=== PATIENT | male | born 2000 | race African-American/Black ===

== ENCOUNTER 2025-11-18 09:09 | Emergency (ER) | payer OTHER, SELFPAY ==
[2025-11-18 09:18] VITALS: BP 155/95; PULSE 130; RESP 18; TEMP 36.8; O2SAT 100
--- NOTE | 2025-11-18 10:04 | ED.NAVMDI ---
HPI - Nausea/Vomiting/Diarrhea General Chief complaint: Nausea/Vomiting/Diarrhea Stated complaint: nausea/fever Time Seen by Provider: 11/18/25 09:50 Source: patient and RN notes reviewed Mode of arrival: ambulatory Limitations: no limitations History of Present Illness HPI Narrative: 25-year-old male patient Presents Express Care complaining of nausea, vomiting, diarrhea for since this morning. Patient says started approximately 7 hours ago. Patient reports having abdominal cramping. Patient denies any abdominal pain, fevers, body aches, chills. Patient last vomited approximately 3 hours ago. Patient has been able to keep fluids down since vomiting. Patient reports brown watery diarrhea. Patient also reports red streaks of blood after wiping it reports red streaks of blood from vomiting. Patient denies any mucus in stools. Patient denies any black tarry stools, vomiting and gross amount of blood it or having gross amount of blood in the stool. Patient has a history of stomach ulcers, a just ran out of his medication for it he is not sure what he is supposed to be on but he has a follow-up with his doctor next week. Patient has not tried any [id number] for relief. Patient denies recent travel outside the country. Related Data Allergies Allergy/AdvReac Type Severity Reaction Status Date / Time No Known Allergies Allergy Verified 11/18/25 09:24 Review of Systems Review of Systems: CONSTITUTIONAL: Denies fever, chills, body aches, or sweats. EYES: Denies visual changes, redness, or discharge. ENT: Denies rhinorrhea, congestion, sore throat, or otalgia. CARDIOVASCULAR: Denies chest pain, palpitations, or edema. RESPIRATORY: Denies cough or dyspnea. GASTROINTESTINAL: Denies abdominal pain, bloody stools, black tarry stools, hematochezia. Positive for nausea, vomiting, or diarrhea. GENITOURINARY: Denies dysuria or hematuria. SKIN: Denies rash or itching. MUSCULOSKELETAL: Denies back pain, joint pain, or myalgia. NEUROLOGIC: Denies headache, numbness, or weakness. PSYCHIATRIC: Denies anxiety or depression. All other systems reviewed are negative, except as documented in HPI. Exam Narrative: GENERAL: This is a well-nourished, well-developed adult, in no apparent distress. They are non ill-appearing, nontoxic appearing. HEAD: normocephalic, atraumatic. EYES: Sclera clear/white. Vision is grossly intact. Conjunctiva normal bilaterally. Extraocular movements intact. EARS: External ears normal, Hearing grossly intact. NOSE: External nose normal THROAT: Mucous membranes moist NECK: Normal range of motion CARDIOVASCULAR: Tachycardic rate and rhythm. Normal S1-S2. No clicks, gallops, rubs, or murmurs. RESPIRATORY: Respiratory rate normal, respiratory effort nonlabored, no respiratory distress. Lung sounds clear to auscultation. Lung sounds equal bilaterally. No adventitious lung sounds. GASTROINTESTINAL: Abdomen soft, flat, non-tender, nondistended. Bowel sounds are active. No hepato-splenomegaly, or palpable masses. No guarding or rigidity. No rebound tenderness. SKIN: warm, Dry, intact with no suspicious lesions or rash, good texture and turgor. NEURO: awake, alert, and oriented to person, place and time. There were no obvious focal neurologic abnormalities. EXTREMITIES: No joint tenderness, effusion, or edema noted. BACK: Nontender without deformity. No CVA tenderness. Course Course Level of Care: Express Care Visit Vital Signs Vital signs: Vital Signs Temperature 98.3 F 11/18/25 09:18 Pulse Rate 130 H 11/18/25 09:18 Respiratory Rate 18 11/18/25 09:18 Blood Pressure 155/95 H 11/18/25 09:18 Pulse Oximetry 100 11/18/25 09:18 Oxygen Delivery Room Air 11/18/25 09:18 Temperature 98.3 F 11/18/25 09:18 Pulse Rate 130 H 11/18/25 09:18 Respiratory Rate 18 11/18/25 09:18 Blood Pressure 155/95 H 11/18/25 09:18 Pulse Oximetry 100 11/18/25 09:18 Oxygen Delivery Room Air 11/18/25 09:18 [facility] Narrative Medical decision making narrative: Patient denies having any black tarry stools, vomiting coffee-ground emesis, no gross blood in stool or vomit. Patient reports red streaks from vomiting and blood after wiping from the diarrhea. Patient is tachycardic, moist mucous membranes, patient is nontoxic appearing, no apparent distress. No peritoneal findings on exam is. His son patient was Luciana, advised patient take omeprazole tell he follows up with his primary about his medication for his ulcers. Strict ER precautions discussed with patient especially the developed black tarry stools, gross amount of blood in stool or vomit, or starts vomiting coffee-ground emesis, concerns dehydration, uncontrollable nausea vomiting diarrhea, fevers, severe abdominal pain, or any serious concerns. Discussed physical exam findings. Advised supportive measures and signs/symptoms to go to the ER. Pt is appropriate for outpt treatment and f/u. Differential Diagnosis Differential Diagnosis: Gastroenteritis, GI bleed, stomach ulcer, gastritis, viral illness Discharge Plan Discharge Clinical Impression: Gastroenteritis Patient Disposition: Home Condition: Stable Instructions: Antibiotic Form, Gastroenteritis (ED) Additional Instructions: It is likely have a viral gastroenteritis. This is normally a self-limiting condition or resolve within 24-72 hours. However sometimes symptoms may linger on up to 7 days. It is recommended not to take anything for the diarrhea and allow the diarrhea to run its course. If the diarrhea persist and you feeling better, you may take Pepto-Bismol as needed to help control the diarrhea. Recommend hydration with plenty of fluids electrolyte supplementation such as Pedialyte. Follow-up PCP in 3-5 days. You may take Zofran as needed for nausea or vomiting. Take 20 mg of omeprazole daily toe you follow-up with your doctor next week. If Your unable to keep anything down, developed severe abdominal pain, fevers, uncontrollable diarrhea, concerns of dehydration, black tarry or gross blood in stools, vomiting gross amount of blood, coffee-ground emesis, or any other concerns please go to the ER immediately. Patient Language: Austrian Prescriptions: New ondansetron 4 mg tablet,disintegrating 4 mg PO Q8H PRN (Reason: nausea and vomiting) Qty: 12 0RF Follow-up/Referrals: PHYSICIAN,[employer] DIRECTOR [Primary Care Provider, Internal Medicine] Stand Alone Forms: Work/School Release IP Time of Disposition: 09:57
== END 2025-11-18 10:02 | disposition home or self-care (01) ==
DX: K52.9 Noninfective gastroenteritis and colitis, unspecified (principal)
CPT/HCPCS: 99213; G0463